=== PATIENT | female | born 2000 | race Caucasian/White ===

== ENCOUNTER 2018-12-02 12:49 | Emergency (ER) | payer OTHER ==
[~2018-12-02] VITALS: Ht 167.6 cm; Wt 70.8 kg
== END 2018-12-02 17:48 | disposition home or self-care (01) ==
LOC: ER 12:49
DX: N30.81 Other cystitis with hematuria (principal)

== ENCOUNTER → 2021-04-16 | Emergency (ER) | payer OTHER ==
[~2021-04-16] VITALS: Ht 170.2 cm; Wt 71.7 kg
== END | disposition home or self-care (01) ==
LOC: ER 17:00
DX: A54.89 Other gonococcal infections (principal)

== ENCOUNTER 2021-08-17 09:12 | Emergency (ER) | payer OTHER ==
[~2021-08-17] VITALS: Ht 170.2 cm; Wt 72.6 kg
== END 2021-08-17 15:05 | disposition home or self-care (01) ==
LOC: ER 09:12
DX: U07.1 COVID-19 (principal); B34.9 Viral infection, unspecified; M54.2 Cervicalgia; M62.838 Other muscle spasm

== ENCOUNTER 2022-05-03 18:24 | Emergency (ER) | payer OTHER ==
[~2022-05-03] VITALS: Ht 170.2 cm; Wt 72.6 kg
== END 2022-05-03 23:46 | disposition home or self-care (01) ==
LOC: ER 18:24
DX: R51.9 Headache, unspecified (principal)